=== PATIENT | male | born 1980 | race Two or more races ===

== ENCOUNTER 2017-04-10 12:20 | Emergency (ER) | payer OTHER ==
[2017-04-10] MEDS ORDERED: HYDROmorphone 0.5 MG/0.5 ML Syringe IVPUSH ONE (12:37)
[2017-04-10] MEDS ORDERED: Diphtheria,Pertussis(Acell),Tetanus Vaccine 0.5 ML SDV IM ONE (12:40)
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
[2017-04-10] MEDS ORDERED: Ondansetron 4 MG/2 ML SDV IVPUSH ONE (13:09)
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
--- NOTE | 2017-04-10 13:56 | CT ---
Cervical Spine wo Cont HISTORY: Frontal bone trauma COMPARISON: None. Dose: Total DLP 446. FINDINGS: Cervical vertebral body heights and disc spaces are normal no fracture or subluxation. The C1-C2 relationship appears normal. Anterior soft tissues unremarkable. Tiny less than 1 mm bony densi ties adjacent to the superior anterior endplate of C5 and C6 most compatible with accessory ossificat ion center. Impression: Negative C-spine CT scan.
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
[2017-04-10] MEDS ORDERED: cefTRIAXone 1 GM in Sodium Chloride 0.9% 50 ML IV ONE ×2 (14:32→15:00)
[2017-04-10] MEDS ORDERED: Sodium Chloride 0.9% 1,000 ML IV SCH (15:00)
[2017-04-10] MEDS ORDERED: Acetaminophen/oxyCODONE 325-5 MG Tab PO ONE (15:01)
== END 2017-04-10 15:55 | disposition home or self-care (01) ==
LOC: JP.ED 12:20
DX: S06.0X9A Concussion with loss of consciousness of unspecified duration, initial encounter (principal); S02.40CA Maxillary fracture, right side, initial encounter for closed fracture; S02.0XXA Fracture of vault of skull, initial encounter for closed fracture; S02.81XA Fracture of other specified skull and facial bones, right side, initial encounter for closed fracture; S60.221A Contusion of right hand, initial encounter; S80.01XA Contusion of right knee, initial encounter; M54.2 Cervicalgia; Z23 Encounter for immunization; V86.59XA Driver of other special all-terrain or other off-road motor vehicle injured in nontraffic accident, initial encounter
CPT/HCPCS: 36415; 70450; 70486; 71010; 72125; 73130; 73564; 80053; 85025; 90471; 96361; 96365; 96375; 99284; A9270; G0480; J0696; J1170; J2405; J7040; J7050